=== PATIENT | female | born 1985 | race Two or more races ===

== ENCOUNTER 2018-02-08 09:21 | Emergency (ER) | payer MEDICAID ==
[~2018-02-08] VITALS: Ht 154.9 cm; Wt 90.7 kg
--- NOTE | 2018-02-08 10:13 | NUR ---
PT WAS EVALUATED BY DR ALVAREZ. PT WAS D/C TO HOME. D/C INSTRUCTIONS GIVEN TO THE PT.
[2018-02-08 10:14] VITALS: BP 136/73
== END 2018-02-08 10:15 | disposition home or self-care (01) ==
LOC: ER 09:21
DX: R07.89 Other chest pain (principal)
CPT/HCPCS: 71045; 93005; A4663

== ENCOUNTER 2018-05-23 23:12 | Emergency (ER) | payer SELFPAY ==
[~2018-05-23] VITALS: Ht 154.9 cm; Wt 108.9 kg
[2018-05-23] MEDS ORDERED: BUPROPION HCL XL 300 MG TABLET (23:24)
[2018-05-23] MEDS ORDERED: GABAPENTIN 300 MG CAPSULE (23:24)
[2018-05-23] MEDS ORDERED: OXCARBAZEPINE 600 MG TABLET (23:24)
[2018-05-23] MEDS ORDERED: LATUDA 120 MG TABLET (23:24)
--- NOTE | 2018-05-23 23:25 | NUR ---
Seen and evaluated by
[2018-05-23] MEDS ORDERED: BACITRACIN OPHT OINT 3.5 GM TUBE ONE (23:34)
--- NOTE | 2018-05-23 23:38 | NUR ---
Treatment with triple antibiotic provided to right great toe
[2018-05-23] MEDS ORDERED: HYDROCODONE/APAP 5-325MG TABLET ONE (23:44)
[2018-05-23] MEDS ORDERED: CEphaleXIN 500 MG CAPSULE ONE (23:44)
[2018-05-23] MEDS ORDERED: CEphaleXIN 500 MG CAPSULE PO ONE (23:45)
[2018-05-23] MEDS ORDERED: NEOMY/BACITRA/POLYMYXIN B OINT UD PACKET TP ONE (23:45)
[2018-05-23] MEDS ORDERED: HYDROCODONE/APAP 5-325MG TABLET PO ONE (23:45)
--- NOTE | 2018-05-23 23:47 | NUR ---
Medication administered
[2018-05-23 23:57] VITALS: BP 118/72
== END 2018-05-23 23:58 | disposition home or self-care (01) ==
LOC: ER 23:16
DX: L60.0 Ingrowing nail (principal); Z79.899 Other long term (current) drug therapy
CPT/HCPCS: A4663; J3590